=== PATIENT | male | born 1940 | race African-American/Black ===

== ENCOUNTER → 2017-03-06 | Outpatient (CLI) | payer OTHER, MEDICARE ==
[~2017-03-06] VITALS: Ht 190.5 cm; Wt 102.1 kg
[~2017-03-06] MED LIST: ASPIR-LOW81 MG PO; BYSTOLIC10 MG PO; CENTRUM SILVER1 EAC4 PO; NAMENDA XR28 MG PO; OLMESARTAN-HCT1 EAC1 PO
--- NOTE | ~2017-03-06 | P ---
[facility] [place] [address] PROCEDURE REPORT Name: MARILUMABEL KRISHNA Room #: REG [facility] Tc#: [id number] Admission: 03/06/17 Attend Phys: Ye Jarvis Discharge: Date of : 36 Report #: [id number] THIS REPORT FOR: //name// CC: Stewart Young DATE OF SERVICE: 03/06/2017 PROCEDURE PERFORMED: Colonoscopy with polypectomies. HISTORY OF PRESENT ILLNESS: The patient is a 77-year-old male here for a screening colonoscopy. He does have a history of chronic constipation. He has never had a screening colonoscopy. No family history of colon cancer. DESCRIPTION OF PROCEDURE: The risks and benefits of the procedure were explained to the patient and his , those risks including but not limited to bleeding, perforation and the risk of sedation. They understood these risks and gave informed consent. Sedation was given using propofol per anesthesia. Next, a digital rectal exam was initially performed, which was normal. Next, using a standard Meiaojun colonoscope, the scope was placed in the patient's anus and advanced under direct vision to the ileocecal valve near the cecum. The overall prep was fairly poor throughout; however, I spent approximately 30-45 minutes with multiple washings and aspirations. Once this was performed, I was able to view approximately 80-90% of the colon fairly well. I was never able to clear the cecum, therefore, things could be missed in the cecum. The ileocecal valve was normal. The ascending colon was normal. In the transverse colon, there were two 5-6 mm sessile polyps, both removed by snare cautery. Multiple diverticula were noted in the descending and sigmoid colon, no evidence of inflammation, otherwise normal. The rectal mucosa was normal. On retroflexion, small nonbleeding internal hemorrhoids were noted. The scope was then withdrawn and the procedure terminated. The patient tolerated the procedure well. IMPRESSION: 1. Poor prep in areas as described above. Multiple washings and aspirations were performed. I explained this to the patient and his today. 2. Two small colonic polyps. 3. Left-sided diverticulosis. 4. Small internal hemorrhoids. RECOMMENDATIONS: 1. Await biopsy results. 2. I explained prep and findings to the our options at this time. He is to simply observe after procedure as it would be very difficult to double prep with his history of dementia and chronic constipation and she agrees. [address] [address] PROCEDURE REPORT Name: MABEL MICHELDEBORAH Room #: REG [facility]#: [id number] Admission: 03/06/17 Attend Phys: Ye Jarvis Discharge: Date of : 36 Report #: [id number] Thank you for allowing me to participate in his care. <ELECTRONICALLY SIGNED> By: Ye Li MD 03/08/17 [id number] Ye Li MD /jenny
--- NOTE | ~2017-03-06 | S ---
[facility] [place] [address] SURGICAL PATH RPT PROCEDURE Name: YANN LEDBETTER Room #: REG [facility].#: [id number] Admission: 03/06/17 Date of : 36 Discharge: Report #: [id number] Path Case #: [id number] PATHOLOGY REPORT COLLECTION DATE: 03/06/2017 RECEIVED DATE: 03/06/2017 SUBMITTING PHYS: Dr. Ye Li OTHER PHYS: Dr. Elfego Young SPECIMEN(S) RECEIVED: A.Transverse colon polyp x2 * * * * * * * * * * * * FINAL DIAGNOSIS: "Transverse colon polyp x2", biopsy: - Tubular adenoma; no high-grade dysplasia. (CLW:eloise; 03/07/2017) PATHOLOGIST: Maren Dowell M.D. REPORT ELECTRONICALLY SIGNED BY: Maren Dowell M.D. DATE/TIME: 03/07/2017 16:18 * * * * * * * * * * * * GROSS PATHOLOGY: Received in formalin labeled "Yann Ledbetter, transverse colon polyp 2," are two segments of villavicencio soft tissue measuring 0.7 x 0.4 x 0.4 cm in aggregate dimensions and ranging from 0.3 to 0.4 cm in maximum dimension. The specimen is submitted entirely in cassette A1. (TSD; 03/06/2017) CLINICAL HISTORY: Pre-OP DX: Chronic constipation Post-OP DX: Colon polyp, diverticulosis INITIAL CPT CODE(S): A; 25230 Professional services performed by [facility] at [facility] [address] [place] [address] Technical services performed by [facility] at [address] [place] [id number]. [facility] [address] [place] [address] SURGICAL PATH RPT PROCEDURE Name: YANN LEDBETTER Room #: REG [facility]#: [id number] Admission: 03/06/17 Date of : 36 Discharge: Report #: [id number] Path Case #: [id number] [address] PHONE: [phone] DIRECTOR: Ike Bates M.D. * * * END OF REPORT * * *
== END | disposition home or self-care (01) ==
LOC: GI 08:10
DX: K59.09 Other constipation (principal); D12.3 Benign neoplasm of transverse colon; K57.30 Diverticulosis of large intestine without perforation or abscess without bleeding; K64.8 Other hemorrhoids; I10 Essential (primary) hypertension; Z85.46 Personal history of malignant neoplasm of prostate; G47.33 Obstructive sleep apnea (adult) (pediatric); Z98.890 Other specified postprocedural states; J45.909 Unspecified asthma, uncomplicated; F03.90 Unspecified dementia, unspecified severity, without behavioral disturbance, psychotic disturbance, mood disturbance, and anxiety
CPT/HCPCS: 62110; 62900

== ENCOUNTER → 2020-10-24 | Outpatient (CLI) | payer OTHER, MEDICARE | LOC: SJCVC 15:14 | PROVIDERS: ATTEND Internal Medicine Cardiovascular Disease | DX: R94.31 Abnormal electrocardiogram [ECG] [EKG] (principal); I10 Essential (primary) hypertension; E78.00 Pure hypercholesterolemia, unspecified; F03.90 Unspecified dementia, unspecified severity, without behavioral disturbance, psychotic disturbance, mood disturbance, and anxiety; Z79.82 Long term (current) use of aspirin; Z79.899 Other long term (current) drug therapy; Z72.89 Other problems related to lifestyle ==